=== PATIENT | male | born 1975 | race Caucasian/White ===

== ENCOUNTER 2023-06-04 16:50 | Emergency (ER) | payer OTHER, SELFPAY ==
[2023-06-04] MEDS ORDERED: Ketorolac Tromethamine 30 MG (1 mL) VIAL ONE (19:41)
[2023-06-04] MEDS ORDERED: HYDROcodone/Acetaminophen 10/325 mg Tablet ONE (19:48)
== END 2023-06-04 20:17 | disposition home or self-care (01) ==
LOC: ERS 16:50
DX: S89.92XA Unspecified injury of left lower leg, initial encounter (principal); I10 Essential (primary) hypertension; F17.220 Nicotine dependence, chewing tobacco, uncomplicated; W10.8XXA Fall (on) (from) other stairs and steps, initial encounter
CPT/HCPCS: 96372; J1885